=== PATIENT | male | born 2000 ===

== ENCOUNTER 2024-09-30 13:51 | Outpatient (AMB) | payer OTHER, SELFPAY ==
--- NOTE | 2024-09-30 13:53 | AM.OFFWIN_ITS ---
Intake Vital Signs 09/30/24 13:56 Height 5 ft 10 in Weight 249 lb BMI 35.7 BP 110/80 Blood Pressure Location Rt brachial Position Sitting Pulse 95 Pulse Source Pulse Oximeter Temp 97.9 F Temp Source Oral Pulse Oximetry (%) 99 Oxygen Delivery Method Room Air Intake Visit Reasons: [employer] ? Ear infection Intake Note: presents with bilateral ear pain and muffled LT>RT, for about 3 weeks s/p cold like symptoms. also c/o fatigue and acid reflux Allergies No Known Allergies Allergy (Verified 09/30/24 13:59) Medication List - Last Reconciled 09/30/24 by ALKA Barlow-C bupropion HCl XL 300 mg PO QAM escitalopram oxalate 20 mg PO DAILY polyethylene glycol 3350 (Gavilax) grams PO DAILY PRN trazodone 100 mg PO BEDTIME PRN Do you need a note to return to daycare/school/sports/work: No HPI HPI Comments History of Present Illness Details History - The patient is a 23-year-old male pres enting with ear pain and blockage. - Symptoms began after a water park visi t two weeks ago, starting with a sore throat, followed by ear pain and blockage. - Left ear is completely blocked, right ear slightly blocked; swimmer's ear drops were ineffective. - No ear drainage, occasional sore throa t, decreased appetite, no medication allergies. - Denies fevers Physical Exam General: Cooperative, healthy appearing, comfortable, no acute distress and well developed Orientation: Patient oriented x3 Limitations: No limitations Head: Normal to inspection Ears: External ears normal bilaterally, TM left with loss of landmarks, erythema and bulging. TM right with cerumen impaction Face and sinus: Normal facial exam Neck: Normal visual inspection and Yes full ROM Respiratory: Normal respiratory effort and able to speak in complete sentences. Skin: No rashes or lesions noted Neuro: Patient oriented x3 Extremities: normal to inspection Review of Systems Const All systems reviewed & are unremarkable except as noted in HPI and below Physical Exam Vital Signs: Last Vital Signs Temp 97.9 F 09/30/24 13:56 Pulse 95 09/30/24 13:56 BP 110/80 09/30/24 13:56 Pulse Ox 99 09/30/24 13:56 Oxygen Delivery Method Room Air 09/30/24 13:56 BMI result Body Mass Index 35.7 Assessment & Plan Assessment & Plan (1) Otitis media: Code(s): H66.90 - Otitis media, unspecified, unspecified ear Qualifiers: Otitis media type: suppurative Chronicity: acute Laterality: left Recurrence: non-recurrent Spontaneous tympanic membrane rupture: without spontaneous rupture Qualified Code(s): H66.002 - Acute suppurative otitis media without spontaneous rupture of ear drum, left ear Plan: Plan Patient was informed and verbally consented to the use of an ambient scribe for clinic note documentation during this visit. 1. Acute Otitis Media - Prescribed Augmentin to be taken twice daily for seven days. - Advised to complete the full course of antibiotics. - Expected improvement by the weekend, with follow-up if symptoms persist. Medications: New amoxicillin-pot clavulanate 875-125 mg 1 tab PO Q12H 14 tabs 0RF Coding Level of Care Code New Pt Level 3 (67926) Diagnoses Non-recurrent acute suppurative otitis media of left ear without spontaneous rupture of tympanic membrane H66.002 Otitis media type: suppurative Chronicity: acute Laterality: left Recurrence: non-recurrent Spontaneous tympanic membrane rupture: without spontaneous rupture
[2024-09-30 13:56] VITALS: BP 110/80; PULSE 95; TEMP 36.6; O2SAT 99; BMI 35.7
== END 2024-09-30 14:31 | disposition home or self-care (01) ==
PROVIDERS: Visit Provider Physician Assistant
DX: H66.002 Acute suppurative otitis media without spontaneous rupture of ear drum, left ear (principal)